=== PATIENT | female | born 1935 | race Caucasian/White ===

== ENCOUNTER 2016-12-25 06:55 | Inpatient (IN) | payer OTHER ==
[~2016-12-25] VITALS: Ht 147.3 cm; Wt 62.1 kg
[2016-12-25 07:55] LABS: BASOPHILS % 0.2 % (0.0-2.0); HEMATOCRIT. 35.7 % (36.0-48.0); HEMOGLOBIN. 12.1 g/dL (12.0-16.0); LYMPHOCYTES % 7.1 % (20.0-50.0); MEAN CORPUSCULAR HEMOGLOBIN 29.2 pg (28.0-32.0); MEAN CORPUSCULAR VOLUME 86.1 fL (81.0-99.0); MEAN PLATELET VOLUME 7.2 fl (7.4-10.4); MONOCYTES % 4.2 % (2.0-8.0); NEUTROPHILS % 88.5 % (40.0-76.0); PLATELET 333 x1000/uL (130-400); RED BLOOD CELL COUNT 4.15 mill/uL (4.2-5.4); RED CELL DISTRIBUTION WIDTH 13.2 % (11.6-14.6)
[2016-12-25 08:04] LABS: PROTHROMBIN TIME 10.6 sec
[2016-12-25 08:10] LABS: CLARITY URINE CLEAR (CLEAR); COLOR URINE YELLOW (YELLOW); GLUCOSE URINE NEGATIVE (NEGATIVE); KETONES URINE NEGATIVE (NEGATIVE); LEUKOCYTE ESTERASE URINE 2+ (NEGATIVE); NITRITE URINE NEGATIVE (NEGATIVE); OCCULT BLOOD URINE 1+ (NEGATIVE); PROTEIN URINE TRACE (NEGATIVE); SPECIFIC GRAVITY URINE 1.019 (1.005-1.030); UROBILINOGEN URINE 0.2 E.U./dL (0.2-1.0)
[2016-12-25 08:13] LABS: CARBON DIOXIDE 24 mEq/L (21-32); CHLORIDE 108 mEq/L (98-107); CREATINE KINASE 265 IU/L (26-192); TROPONIN I < 0.02 ng/mL (0.00-0.04)
[2016-12-25] MEDS ORDERED: CEFTRIAXONE 1 G PREMIX 50 ML IV ONE (08:15)
[2016-12-25] MEDS ORDERED: ONDANSETRON HCL 4MG/2ML VIAL IV PRN (09:30)
[2016-12-25] MEDS ORDERED: DIPHENHYDRAMINE 50MG/ML VIAL IV PRN (09:30)
[2016-12-25] MEDS ORDERED: DOCUSATE SODIUM 100MG CAPSULE PO PRN (09:30)
[2016-12-25] MEDS ORDERED: CLONIDINE 0.1MG TABLET PO PRN (09:30)
[2016-12-25] MEDS ORDERED: IPRATROPIUM/ALBUTEROL 0.5-3(2.5)MG/3ML NEB INH PRN (09:30)
[2016-12-25] MEDS ORDERED: ACETAMINOPHEN 325MG TABLET PO PRN (09:30)
[2016-12-25] MEDS ORDERED: NA PHOS,M-B/NA PHOS,DI-BA ENEMA 118ML PR PRN (09:30)
[2016-12-25] MEDS ORDERED: MAGNESIUM/ALUMINUM HYDROXIDE/SIMETHICONE 30ML UDC PO PRN (09:30)
[2016-12-25] MEDS ORDERED: HYDROCODONE/ACETAMINOPHEN 5/325MG TABLET PO PRN (09:30)
[2016-12-25] MEDS ORDERED: LORAZEPAM 2MG/ML CPJ IV PRN (09:30)
[2016-12-25 10:30] VITALS: BP 139/82
[2016-12-25 11:00] VITALS: BP 138/78
[2016-12-25] MEDS ORDERED: ROCEPHIN IVPB XX SCH (11:00)
[2016-12-25] MEDS ORDERED: KEPP500 PO (11:04)
[2016-12-25 12:00] VITALS: BP 130/70
[2016-12-25] MEDS ORDERED: LEVETIRACETAM 500 MG in SODIUM CHLORIDE 0.9% 100 ML IV NR (13:00)
[2016-12-25] MEDS: DEXT 5%/0.45% NACL KCL 20MEQ/L 1,000 ML IV SCH (13:15)
[2016-12-25] MEDS: ENOXAPARIN 40MG/0.4ML SYR SUBCUT SCH (14:14)
[2016-12-25 16:00] LABS: CLARITY URINE CLEAR (CLEAR); COLOR URINE YELLOW (YELLOW); GLUCOSE URINE NEGATIVE (NEGATIVE); KETONES URINE NEGATIVE (NEGATIVE); LEUKOCYTE ESTERASE URINE NEGATIVE (NEGATIVE); NITRITE URINE NEGATIVE (NEGATIVE); OCCULT BLOOD URINE NEGATIVE (NEGATIVE); PH URINE 7.5 (4.5-8.0); PROTEIN URINE NEGATIVE (NEGATIVE); SPECIFIC GRAVITY URINE 1.016 (1.005-1.030); UROBILINOGEN URINE 0.2 E.U./dL (0.2-1.0)
[2016-12-25 16:30] VITALS: BP 116/53
[2016-12-25 16:46] LABS: TROPONIN I < 0.02 ng/mL (0.00-0.04)
[2016-12-25 20:00] VITALS: BP 104/61
[2016-12-25] MEDS: LEVETIRACETAM 500 MG in SODIUM CHLORIDE 0.9% 100 ML IV SCH (21:50)
[2016-12-25 23:13] LABS: CREATINE KINASE MB FRACTION 2.4 ng/mL (0.5-3.6); TROPONIN I < 0.02 ng/mL (0.00-0.04)
[2016-12-26] VITALS: BP 99/47
[2016-12-26] MEDS: DEXT 5%/0.45% NACL KCL 20MEQ/L 1,000 ML IV SCH
[2016-12-26 04:00] VITALS: BP 99/56
[2016-12-26 04:51] LABS: CARBON DIOXIDE 25 mEq/L (21-32); CHLORIDE 108 mEq/L (98-107)
[2016-12-26 04:59] LABS: HDL CHOLESTEROL 42 mg/dL (40-59); LDL CHOLESTEROL 124 mg/dL (5-100); T4 FREE 1.27 ng/dL (0.76-1.46)
[2016-12-26 06:27] LABS: BASOPHILS % 0.4 % (0.0-2.0); EOSINOPHILS % 0.8 % (0.0-5.0); HEMATOCRIT. 29.6 % (36.0-48.0); HEMOGLOBIN. 10.3 g/dL (12.0-16.0); LYMPHOCYTES % 28.4 % (20.0-50.0); MEAN CORPUSCULAR HEMOGLOBIN 30.3 pg (28.0-32.0); MEAN CORPUSCULAR VOLUME 86.7 fL (81.0-99.0); MEAN PLATELET VOLUME 7.9 fl (7.4-10.4); MONOCYTES % 10.7 % (2.0-8.0); NEUTROPHILS % 59.7 % (40.0-76.0); PLATELET 273 x1000/uL (130-400); RED BLOOD CELL COUNT 3.42 mill/uL (4.2-5.4)
[2016-12-26 08:15] VITALS: BP 107/48
[2016-12-26] MEDS: LEVETIRACETAM 500 MG in SODIUM CHLORIDE 0.9% 100 ML IV SCH (08:22)
[2016-12-26] MEDS ORDERED: ENOXAPARIN 30MG/0.3ML SYR SUBCUT SCH (09:00)
[2016-12-26] MEDS ORDERED: CEFTRIAXONE 1 G PREMIX 50 ML IV SCH (09:00)
[2016-12-26] MEDS: ENOXAPARIN 40MG/0.4ML SYR SUBCUT SCH (09:09)
[2016-12-26] MEDS ORDERED: DEXT 5%/0.45% NACL KCL 20MEQ/L 1,000 ML IV SCH (10:30)
[2016-12-26 11:39] VITALS: BP 112/47
[2016-12-26 12:36] LABS: BG BASE EXCESS -2.1 mmol/L (-2.0-2.0); BG DEOXYHEMOGLOBIN 6.3 % (0.0-5.0); BG FRACTION INSPIRED OXYGEN 21; BG HCO3 ACT 22.1 mmol/L (22.0-26.0); BG METHEMOGLOBIN 0.2 % (0.0-1.5); BG OXYGEN SATURATION 93.7 % (92.0-98.5); BG OXYHEMOGLOBIN 93.5 % (94.0-97.0); BG PH 7.406 (7.350-7.450); BG PO2 70.3 mmHg (75.0-100.0); BG SAMPLE SITE RIGHT RADIAL; BG TOTAL HEMOGLOBIN 11.4 g/dL (12.0-18.0); BG VENT MODE ROOM AIR
[2016-12-26 16:18] VITALS: BP 101/37
[2016-12-26 16:32] VITALS: BP 101/85
== END 2016-12-26 17:25 | disposition home or self-care (01) | DRG 53 ==
LOC: ER 06:55 → 6WST 08:19 → EDBEDREQ 08:28 → ENRESERV 08:33
PROVIDERS: ADMIT Internal Medicine; ATTEND Internal Medicine
DX: R56.9 Unspecified convulsions (principal); E87.2 Acidosis; F03.90 Unspecified dementia, unspecified severity, without behavioral disturbance, psychotic disturbance, mood disturbance, and anxiety; R65.10 Systemic inflammatory response syndrome (SIRS) of non-infectious origin without acute organ dysfunction; N39.0 Urinary tract infection, site not specified; H54.8 Legal blindness, as defined in USA; E07.81 Sick-euthyroid syndrome; R32 Unspecified urinary incontinence
CPT/HCPCS: 36415; 36600; 70450; 70551; 71010; 80053; 80061; 81001; 81003; 82375; 82550; 82553; 82805; 83605; 83690; 83880; 84439; 84443; 84481; 84484; 85025; 85610; 87040; 87086; 92610; 93005; 93970; 96365; 97162; 97166; 99291; J0696; J1650; J1953; J2405; J7050